=== PATIENT | female | born 1970 | race Caucasian/White ===

== ENCOUNTER 2023-05-29 18:47 | Emergency (ER) | payer BC ==
[2023-05-29 21:19] VITALS: TEMP 97.6
--- NOTE | 2023-05-29 21:25 | ED ---
Headache HPI - General Source: patient Mode of arrival: ambulatory Limitations: no limitations <Hannah Oconnor - Last Filed: 06/08/23 23:40> - History of Present Illness MD Complaint: headache, "migraine" -: hour(s) Onset Description: gradual Location: right, left, frontal Severity: moderate Severity scale (1-10): 7 Quality: constant Consistency: constant Improves With: nothing Worsens With: none Associated Symptoms: nausea Treatments Prior to Arrival: none <Severo Michel - Last Filed: 06/11/23 14:20> - General Chief Complaint: Headache Stated Complaint: Migraine Time Seen by Provider: 05/29/23 21:25 - History of Present Illness Initial Comments: 58-year-old female history of migraines presenting with chief complaint of migraine. States that she is being weaned off of Effexor. She states that shortly after she woke up this morning the migraine started. Admits to nausea. Has taken Imitrex. (Hannah Oconnor) This is a 52 female presented today for evaluation of migraine headache. Migrainous throbbing pulsatile with nausea no active vomiting currently. No fevers no trauma. Patient does admit to being weaned off her Effexor orally of more so abruptly stopping it coincides with the onset of this headache. No trauma no fevers (Severo Michel) - Related Data Allergies Allergy/AdvReac Type Severity Reaction Status Date / Time Sulfa (Sulfonamide Allergy Anaphylaxis Verified 05/29/23 21:20 Antibiotics) metoclopramide [From Reglan] AdvReac Unknown Verified 05/29/23 21:20 prochlorperazine AdvReac Unknown Verified 05/29/23 21:20 [From Compazine] Review of Systems ROS Other: All systems not noted in ROS Statement are negative. <Hannah Oconnor - Last Filed: 06/08/23 23:40> ROS Other: All systems not noted in ROS Statement are negative. <Severo Michel - Last Filed: 06/11/23 14:20> ROS Statement: Those systems with pertinent positive or pertinent negative responses have been documented in the HPI. Past Medical History Past Medical History: Blood Disorder Additional Past Medical History / Comment(s): autoimmune disorder. antiph ospolipid syndrome, blood clots, migraines History of Any Multi-Drug Resistant Organisms: None Reported Past Surgical History: Cholecystectomy, Ear Surgery, Orthopedic Surgery Additional Past Surgical History / Comment(s): brain surgery Past Psychological History: No Psychological Hx Reported Smoking Status: Never smoker Past Alcohol Use History: Rare Past Drug Use History: Marijuana <Hannah Oconnor - Last Filed: 06/08/23 23:40> General Exam Limitations: no limitations <Hannah Oconnor - Last Filed: 06/08/23 23:40> Limitations: no limitations General appearance: alert, in no apparent distress Head exam: Present: atraumatic, normocephalic, normal inspection Eye exam: Present: normal appearance, PERRL, EOMI. Absent: scleral icterus, conjunctival injection, periorbital swelling ENT exam: Present: normal exam, mucous membranes moist Neck exam: Present: normal inspection. Absent: tenderness, meningismus, lymphadenopathy Respiratory exam: Present: normal lung sounds bilaterally. Absent: respiratory distress, wheezes, rales, rhonchi, stridor Cardiovascular Exam: Present: regular rate, normal rhythm, normal heart sounds. Absent: systolic murmur, diastolic murmur, rubs, gallop, clicks GI/Abdominal exam: Present: soft, normal bowel sounds. Absent: distended, tenderness, guarding, rebound, rigid Extremities exam: Present: normal inspection, full ROM, normal capillary refill. Absent: tenderness, pedal edema, joint swelling, calf tenderness Back exam: Present: normal inspection Neurological exam: Present: alert, oriented X3, CN II-XII intact Psychiatric exam: Present: normal affect, normal mood Skin exam: Present: warm, dry, intact, normal color. Absent: rash <Severo Michel - Last Filed: 06/11/23 14:20> - General Exam Comments Initial Comments: Visual Physical Exam Vital signs reviewed General: Well-appearing, nontoxic, no acute distress. Head: Normocephalic, atraumatic Eyes: PERRLA, EOMI ENT: Airway patent Chest: Nonlabored breathing Skin: No visual rash, normal skin tone Neuro: Alert and oriented 3 Musculoskeletal: No gross abnormalities (Hannah Oconnor) Course <Severo Michel - Last Filed: 06/11/23 14:20> Vital Signs 07/04/1605/30/23 05/30/23 21:11 02:13 03:12 Temperature 97.6 F Pulse Rate 89 77 68 Respiratory 18 20 18 Rate Blood Pressure 128/90 126/71 133/57 O2 Sat by Pulse 98 97 97 Oximetry 05/30/23 04:22 Temperature Pulse Rate 74 Respiratory 18 Rate Blood Pressure 118/78 O2 Sat by Pulse 97 Oximetry - Reevaluation(s) Reevaluation #1: 05/29/23 23:36 Medical records reviewed (Severo Michel) Reevaluation #2: 05/29/23 23:36 Patient's headache is resolved (Severo Michel) Reevaluation #3: 05/29/23 23:36 Patient informed results questions answered (Severo Michel) Reevaluation #4: Was pt. sent in by a medical professional or institution? @ -no Did you speak to anyone other than the patient for history? @ -no Did you review nursing and triage notes? @ -agree Were old charts reviewed? @ -yes Differential Diagnosis? @ -prior EKG interpreted by me (3pts min.)? @ -no X-rays interpreted by me (1pt min.)? @ -no CT interpreted by me (1pt min.)? @ -yes U/S interpreted by me (1pt. min.)? @ -no What testing was considered but not performed? (CT, X-rays, U/S, labs)? Why? @ -no What meds were considered but not given? Why? @ -no Did you discuss the management of the patient with other professionals? @ -no Did you reconcile home meds? @ -no Was smoking cessation discussed for >3mins.? @ -no Was critical care preformed (if so, how long)? @ -no Were there social determinants of health that impacted care today? How? (Homelessness, low income, unemployed, alcoholism, drug addiction, transportation, low edu. Level, literacy, decrease access to med. care, alf, rehab)? @ -no Was there de-escalation of care discussed even if they declined? (Discuss DNR or withdrawal of care, Hospice)? @ -no What co-morbidities impacted this encounter? (DM, HTN, Smoking, COPD, CAD, Cancer, CVA, Hep., AIDS, mental health diagnosis, sleep apnea, morbid obesity)? @ -none Was patient admitted / discharged? @ -52 female to the emergency department is for evaluation. Patient presents today for evaluation regards to headache, migraine headache which is resolved here in the ER patient feels better and can be discharged home Discharge Undiagnosed new problem with uncertain prognosis? @ -no Drug Therapy requiring intensive monitoring for toxicity (Heparin, Nitro, Insulin, Cardizem)? @ -no Were any procedures done? @ -no Diagnosis/symptom? @ -Migraine headache, withdrawal symptoms Acute, or Chronic, or Acute on Chronic? @ -acute Uncomplicated (without systemic symptoms) or Complicated (systemic symptoms)? @ -complicated Side effects of treatment? @ -no Exacerbation, Progression, or Severe Exacerbation] @ -no Poses a threat to life or bodily function? @ -no (Severo Michel) Reevaluation #5: Differential Headache: Migraine, tension, cluster, carbon monoxide, central venous thrombosis, pension karma temporal arteritis, acute closure glaucoma, intercranial hemorrhage, mastoiditis, sinusitis, head injury, this is not meant to be an all-inclusive list. (Severo Michel) Medical Decision Making <Hannah Oconnor - Last Filed: 06/08/23 23:40> - Radiology Data Radiology results: report reviewed (CT brain negative for acute disease), image reviewed <Severo Michel - Last Filed: 06/11/23 14:20> - Medical Decision Making I performed a QuickNote portion of this chart. Signed Hannah Oconnor PA-C (Hannah Oconnor) 52 female to the emergency department is for evaluation. Patient presents today for evaluation regards to headache, migraine headache which is resolved here in the ER patient feels better and can be discharged home (Severo Michel) - Lab Data Lab Results 05/30/23 Range/Units 02:35 D-Dimer 0.23 (<0.60) mg/L FEU Disposition <Hannah Oconnor - Last Filed: 06/08/23 23:40> Is patient prescribed a controlled substance at d/c from ED?: No Time of Disposition: 04:00 <Severo Michel - Last Filed: 06/11/23 14:20> Clinical Impression: Headache, Migraine headache Disposition: HOME SELF-CARE Condition: Fair Instructions (If sedation given, give patient instructions): Acute Headache (ED) Referrals: Nonstaff,Physician [Primary Care Provider] - 1-2 days
[2023-05-29] MEDS ORDERED: KETOROLAC 15 MG/ML 1 ML VIAL IVP STA (22:01)
[2023-05-29] MEDS ORDERED: diphenhydrAMINE 50 MG/ML 1 ML VIAL IVP STA (22:01)
[2023-05-29] MEDS ORDERED: SODIUM CHLORIDE 0.9% 1,000 ML IV STA (22:01)
[2023-05-29] MEDS ORDERED: methylPREDNISolone SOD SUCCIN 250 MG in SODIUM CHLORIDE 0.9% 100 ML IVPB ONE (22:15)
[2023-05-29] MEDS ORDERED: LORazepam 2 MG/ML INJ IV STA (23:56)
[2023-05-29] MEDS ORDERED: MORPHINE SULFATE 4 MG/ML SYRINGE IVP STA (23:56)
[2023-05-29] MEDS ORDERED: MAG HYDROX/AL HYDROX/SIMETH 30 ML, HYOSCYAMINE ELIXIR 10 ML, LIDOCAINE 2% GLYDO JELLY 1... PO STA ×3 (23:59)
[2023-05-30] MEDS ORDERED: SUMAtriptan succinate 6 MG/0.5 ML VIAL SQ STA (01:20)
[2023-05-30] MEDS ORDERED: ONDANSETRON 4 MG/2 ML VIAL IVP STA (01:20)
--- NOTE | 2023-05-30 01:52 | CT ---
EXAM: CT Head Without Intravenous Contrast CLINICAL HISTORY: ITS.REASON CT Reason: headache TECHNIQUE: Axial computed tomography images of the head/brain without intravenous contrast. CTDI is 49.2 mGy and DLP is 1099.4 mGy-cm. This CT exam was performed using one or more of the following dose reduction techniques: automated exposure control, adjustment of the mA and/or kV according to patient size, and/or use of iterative reconstruction technique. COMPARISON: No relevant prior studies available. FINDINGS: Brain: No hemorrhage or mass effect. Ventricles: No hydrocephalus. Bones/joints: Post op changes. Soft tissues: Unremarkable. Sinuses: No air fluid level. Mastoid air cells: Clear. IMPRESSION: No acute hemorrhage, hydrocephalus, or mass effect.
[2023-05-30] MEDS ORDERED: cloNIDine HCL 0.2 MG TAB PO STA (02:41)
[2023-05-30 03:13] VITALS: RESP 18
[2023-05-30] MEDS ORDERED: diazePAM 5 MG TAB PO STA (03:35)
[2023-05-30 04:25] VITALS: BP 118/78; PULSE 74
== END 2023-05-30 05:10 | disposition home or self-care (01) ==
LOC: EC 18:47
DX: G43.909 Migraine, unspecified, not intractable, without status migrainosus (principal); F12.90 Cannabis use, unspecified, uncomplicated; Z88.2 Allergy status to sulfonamides; Z88.8 Allergy status to other drugs, medicaments and biological substances
CPT/HCPCS: 36415; 85379; 70450; 99284; 96365; 96366; 96375 ×5; 96361 ×4; 96372; J3030; J2060; J2270; J1200; J2405; J2930; J1885